=== PATIENT | male | born 2000 | race Hispanic/Latino ===

== ENCOUNTER 2022-09-19 13:59 | Emergency (ER) | payer OTHER ==
[~2022-09-19] VITALS: Ht 175.3 cm; Wt 87.7 kg
[2022-09-19] MEDS ORDERED: BACT800T5 PO (15:41)
[2022-09-19 15:49] VITALS: BP 135/70
== END 2022-09-19 15:50 | disposition home or self-care (01) ==
LOC: M ED 13:59
DX: S30.812A Abrasion of penis, initial encounter (principal)

== ENCOUNTER 2022-11-08 14:59 | Emergency (ER) | payer OTHER ==
[~2022-11-08] VITALS: Ht 175.3 cm; Wt 95.0 kg
[~2022-11-08 14:59] MED LIST: BACT800T5 PO
[2022-11-08 19:18] LABS: BASO % 0.4 % (0.0-1.0); EOS # 0.1 10^3/uL (0.0-0.5); EOS % 1.8 % (0.0-3.0); HEMATOCRIT 44.3 % (42.0-52.0); HEMOGLOBIN 14.6 g/dl (13.5-17.5); LYMPH # 2.8 10^3/uL (1.5-5.0); LYMPH % 35.6 % (24.0-44.0); MEAN CORPUSCULAR HEMOGLOBIN 30.4 pg (27.0-33.0); MEAN CORPUSCULAR VOLUME 92.3 fl (80.0-96.0); MONO # 0.5 10^3/uL (0.0-0.8); MONO % 6.4 % (2.0-8.0); NEUTROPHILS # 4.4 10^3/uL (1.5-8.5); NEUTROPHILS % 55.7 % (36.0-66.0); PLATELET COUNT, AUTOMATED 254 10^3/uL (150-450); WHITE BLOOD COUNT 7.9 10^3/uL (4.0-10.0)
[2022-11-08 19:38] LABS: BLOOD UREA NITROGEN 18 MG/DL (9-23); CALCIUM LEVEL 8.9 MG/DL (8.5-10.1); CARBON DIOXIDE LEVEL 28 MMOL/L (20-31); CHLORIDE LEVEL 108 MMOL/L (98-107); CREATININE FOR GFR 0.83 MG/DL (0.70-1.30); GLOMERULAR FILTRATION RATE > 60.0 (>60); GLUCOSE, FASTING 88 MG/DL (60-100); POTASSIUM SERUM 4.4 MMOL/L (3.5-5.1); SODIUM LEVEL 141 MMOL/L (136-145)
[2022-11-08] MEDS ORDERED: ALBU6.7H6 INH (20:19)
[2022-11-08 20:28] VITALS: BP 137/65
== END 2022-11-08 20:29 | disposition home or self-care (01) ==
LOC: M ED 14:59
DX: R06.00 Dyspnea, unspecified (principal)

== ENCOUNTER → 2023-01-18 | Outpatient (CLI) | payer OTHER ==
[~2023-01-18] MED LIST changes: +ALBU6.7H6 INH; +METHACHOLINE KIT INH ONE
== END ==
LOC: M CARPUL 10:44
PROVIDERS: ATTEND Physician Assistant
DX: R06.00 Dyspnea, unspecified (principal)

== ENCOUNTER → 2024-05-25 | Outpatient (REF) | payer OTHER ==
[~2024-05-25] MED LIST changes: -METHACHOLINE KIT INH ONE
[2024-05-25 13:18] LABS: APPEARANCE, URINE CLEAR (CLEAR); BACTERIA, URINE AUTO NEGATIVE (NEGATIVE); BILIRUBIN, URINE AUTO NEGATIVE (NEGATIVE); BLOOD, URINE BLOOD 1+ (NEGATIVE); COLOR, URINE YELLOW (YELLOW); GLUCOSE, URINE (UA) AUTO NEGATIVE (NEGATIVE); KETONE, URINE AUTO NEGATIVE (NEGATIVE); LEUKOCYTE ESTERASE, URINE AUTO NEGATIVE (NEGATIVE); NITRITE, URINE AUTO NEGATIVE (NEGATIVE); PROTEIN, URINE AUTO NEGATIVE (NEGATIVE); RBC, URINE AUTO 1 /HPF (0-3); SPECIFIC GRAVITY URINE AUTO 1.026 (1.002-1.035); SQUAMOUS EPITHELIAL CELL UR AU 0 /HPF (0-6); UROBILINOGEN, URINE AUTO 0.2 mg/dL (0.0-2.0); WBC, URINE AUTO 0 /HPF (0-3)
[2024-05-25 13:21] LABS: BASO % 0.9 % (0.0-1.0); EOS # 0.1 10^3/uL (0.0-0.5); EOS % 2.9 % (0.0-3.0); HEMATOCRIT 43.9 % (42.0-52.0); HEMOGLOBIN 14.7 g/dl (13.5-17.5); LYMPH # 1.9 10^3/uL (1.5-5.0); LYMPH % 42.9 % (24.0-44.0); MEAN CORPUSCULAR HEMOGLOBIN 31.5 pg (27.0-33.0); MEAN CORPUSCULAR HGB CONC 33.5 g/dl (32.0-36.5); MONO # 0.4 10^3/uL (0.0-0.8); MONO % 8.8 % (2.0-8.0); NEUTROPHILS % 44.3 % (36.0-66.0); PLATELET COUNT, AUTOMATED 278 10^3/uL (150-450); RED BLOOD COUNT 4.67 10^6/uL (4.30-6.10); WHITE BLOOD COUNT 4.4 10^3/uL (4.0-10.0)
[2024-05-25 13:25] LABS: C REACTIVE PROTEIN QUANTITATIV < 0.40 MG/DL (<1.0)
[2024-05-25 13:26] LABS: LDH LACTATE DEHYDROGENASE 156 U/L (120-246)
[2024-05-25 13:27] LABS: ALBUMIN 3.9 G/DL (3.2-5.2); ALKALINE PHOSPHATASE 57 U/L (40-129); ALT/SGPT 30 U/L (7.0-40); AST/SGOT 15 U/L (<34); BILIRUBIN,TOTAL 0.3 MG/DL (0.3-1.2); BLOOD UREA NITROGEN 21 MG/DL (9-23); CALCIUM LEVEL 9.5 MG/DL (8.5-10.1); CARBON DIOXIDE LEVEL 29 MMOL/L (20-31); CHLORIDE LEVEL 106 MMOL/L (98-107); CPK CREATINE PHOSPHOKINASE 211 U/L (46-171); CREATININE FOR GFR 0.82 MG/DL (0.70-1.30); GLOMERULAR FILTRATION RATE > 60.0 (>60); GLUCOSE, FASTING 60 MG/DL (60-100); SODIUM LEVEL 141 MMOL/L (136-145); TOTAL PROTEIN 7.2 G/DL (5.7-8.2)
[2024-05-25 13:28] LABS: COMPLEMENT C3 111.2 MG/DL (82.0-160.0); COMPLEMENT C4 23.7 MG/DL (12-36)
[2024-05-25 13:29] LABS: ERYTHROCYTE SEDIMENTATION RATE 7 mm/hr (0-15)
[2024-05-25 13:30] LABS: TOTAL 25(OH) VITAMIN D 29.2 NG/ML (20.0-100.0)
[2024-05-25 13:40] LABS: TOTAL PROTEIN,RANDOM URINE 16.8 MG/DL (0.0-14.0)
[2024-05-25 13:45] LABS: CREATININE,RANDOM URINE 155.9 MG/DL
[2024-05-28 15:22] LABS: ANGIOTENSIN 1 CONVERTING ENZYM 70 U/L (9-67)
== END ==
LOC: M SFHCRHEU 08:48
PROVIDERS: ATTEND Internal Medicine Rheumatology
DX: R76.8 Other specified abnormal immunological findings in serum (principal); K13.79 Other lesions of oral mucosa; R20.0 Anesthesia of skin; R06.02 Shortness of breath; R53.83 Other fatigue